=== PATIENT | female | born 1995 | race American Indian/Alaskan Native ===

== ENCOUNTER 2017-06-07 14:52 | Emergency (ER) | payer BC ==
[2017-06-07] MEDS ORDERED: MOTRIN PO ONE (20:30)
[2017-06-07] MEDS ORDERED: XYLOCAINE TOPICAL 5% TP ONE (20:30)
--- NOTE | 2017-06-07 20:30 | Emergency Department Report ---
HPI - General Chief Complaint: Rectal Pain Time Seen by Provider: 06/07/17 19:45 - HPI HPI: Patient report rectal pain and hemorrhoid with swelling. She said this started 2 days ago. She said pain increases with bowel movement but she has normal bowel movement. Denies straining and would have a bowel movement. Denies any rectal bleeding. Denies any abdominal pain denies any urinary burning frequency or urgency. Denies any fever or chills. Pain is 7 out of 10 and burning . Pain is worse with bowel movement. Denies any vaginal bleeding or discharge. Last menstrual period 05/23/2017. Patient reports that she took 2 Tylenol at home but it didn't help her pain. ED Past Medical Hx - Past Medical History Previous Medical History?: No - Surgical History Past Surgical History?: No - Family History Family history: no significant - Social History Smoking Status: Never Smoker Substance Use Type: None - Medications Home Medications: Home Medications Medication Instructions Recorded Confirmed Last Taken Type Hydrocortisone [Anusol-Hc] 30 gm RC TID PRN #1 cream..g. 06/07/17 Unknown Rx Ibuprofen [Motrin] 600 mg PO Q8H PRN #12 tablet 06/07/17 Unknown Rx ED Review of Systems ROS: Stated complaint: RECTAL PAIN Other details as noted in HPI Comment: All other systems reviewed and negative Constitutional: no symptoms reported Respiratory: no symptoms reported Cardiovascular: denies: chest pain, palpitations, dyspnea on exertion, edema, syncope, paroxysmal nocturnal dyspnea Gastrointestinal: denies: abdominal pain, nausea, vomiting, diarrhea, constipation, hematemesis, melena, hematochezia Genitourinary: other (reports). denies: urgency, dysuria, frequency, hematuria , discharge Musculoskeletal: denies: back pain, joint swelling, arthralgia Skin: denies: rash Neurological: denies: headache Physical Exam - Physical Exam Vital Signs: Vital Signs 06/07/17 15:06 Temperature 98.4 F Pulse Rate 82 Respiratory 16 Rate Blood Pressure 121/70 O2 Sat by Pulse 100 Oximetry General: This is a 21-year-old female well-nourished well-developed in no acute distress. Physical Exam: Head: Normocephalic, atraumatic, no abrasion, no bruising and no contusion. Mouth: Mucosa dry, no pharyngeal exudate or erythema. No peritonsillar abscesses. Uvula is midline and oral airways patent. Neck: Supple, No Cervical adenopathy, full range of motion and no C-spine tenderness. Cardiovascular: S1, S2. Regular rate and rhythm. No murmur. Capillary refill is less then 3 seconds. Lungs: Clear to auscultate bilaterally. No rhonchi, wheezes or rales. No chest wall tenderness. No chest contusion. No bruising to chest. Abdomen: Non-tender to palpate in all quadrants, no guarding or rebound tenderness, positive bowel sounds in all quadrants. No CVA tenderness. No hernia, bruit or mass. No rigidity or distention. Extremities: No clubbing, cyanosis or edema. +2 pulses. No neurovascular compromise Skin: Clean, dry and intact. No rash or lesions. Rectal exam: Patient with small external hemorrhoid that is not thrombosed. No bleeding noted. No rash or lesions noted around anus. Tender to palpate Tendon ED Course Vital Signs 06/07/17 15:06 Temperature 98.4 F Pulse Rate 82 Respiratory 16 Rate Blood Pressure 121/70 O2 Sat by Pulse 100 Oximetry - Reevaluation(s) Reevaluation #1: 06/07/17 20:46 Patient given Motrin 800 mg by mouth in emergency room for rectal pain. Physical slow given topical lidocaine 5% to apply to side. 06/07/17 20:49 ED Medical Decision Making - Medical Decision Making ED course: Here complaining of hemorrhoid and rectal pain. Physical findings were small hemorrhoid externally rectal area, tenderness to palpate. No bleeding from rectal area. Hemorrhoid is not thrombosed. Patient given Motrin 800 mg by mouth for rectal pain and lidocaine 5% topically applied to site. Patient discharged home with prescription for Anusol cream and Motrin and to follow-up with [facility] in 2-3 days. Critical care attestation.: If time is entered above; I have spent that time in minutes in the direct care of this critically ill patient, excluding procedure time. ED Disposition Clinical Impression: External hemorrhoid, Rectal pain Disposition: TO HOME OR SELFCARE Is pt being admited?: No Does the pt Need Aspirin: No Condition: Stable Instructions: Hemorrhoids (ED), Hydrocortisone (Rectal), High Fiber Diet (ED) Additional Instructions: Please follow up with [facility] in 2-3 days If hemorrhoid becomes enlarged and engorged and increasing rectal pain with bleeding, please return to the emergency room AYESHA. Apply topical medication as instructed Increase fiber in diet. Prescriptions: Hydrocortisone [Anusol-Hc] 30 gm RC TID PRN #1 cream..g. PRN Reason: Hemorrhoids Ibuprofen [Motrin] 600 mg PO Q8H PRN #12 tablet PRN Reason: Pain Referrals: [facility] [Outside] - 2-3 Days Forms: Work/School Release Form(ED)
[2017-06-07 20:56] VITALS: BP 104/70
[2017-06-07] MEDS ORDERED: NACL 0.9% INFILTRATI ONE (21:00)
[2017-06-07] MEDS ORDERED: XYLOCAINE 1% INFILTRATI ONE (21:00)
== END 2017-06-07 20:59 | disposition home or self-care (01) ==
LOC: ED 14:52
DX: K64.4 Residual hemorrhoidal skin tags (principal); R10.2 Pelvic and perineal pain
CPT/HCPCS: 99283

== ENCOUNTER 2019-07-12 20:22 | Emergency (ER) | payer BC ==
[2019-07-12 21:21] LABS: Bacteria,Urine 1+ /HPF (Negative); Bilirubin,Urine NEG (Negative); Blood,Urine NEG (Negative); Color,Urine Straw (Yellow); Protein,Urine <15 mg/dL mg/dL (Negative); Urobilinogen,Urine < 2.0 mg/dL (<2.0)
[2019-07-12 21:59] LABS: Basophils % (Auto) 0.5 % (0.0-1.8); Eosinophils # (Auto) 0.1 K/mm3 (0.0-0.4); Eosinophils % (Auto) 0.7 % (0.0-4.3); Hematocrit 35.8 % (30.3-42.9); Hemoglobin 11.9 gm/dl (10.1-14.3); Lymphocytes # (Auto) 1.5 K/mm3 (1.2-5.4); Lymphocytes % (Auto) 15.9 % (13.4-35.0); Mean Corpuscular HGB Conc 33 % (30-34); Mean Corpuscular Volume 81 fl (79-97); Monocytes # (Auto) 0.5 K/mm3 (0.0-0.8); Monocytes % (Auto) 5.7 % (0.0-7.3); Platelet Count 272 K/mm3 (140-440); Red Blood Count 4.45 M/mm3 (3.65-5.03); Red Cell Distribution Width 13.4 % (13.2-15.2)
[2019-07-12 22:05] LABS: Alanine Aminotransferase 8 units/L (7-56); Albumin 3.9 g/dL (3.9-5); BUN/Creatinine Ratio 13; Blood Urea Nitrogen 9 mg/dL (7-17); Calcium 8.9 mg/dL (8.4-10.2); Hemolysis Index 2
--- NOTE | 2019-07-12 23:21 | Emergency Department Report ---
ED Abdominal Pain HPI - General Chief Complaint: Abdominal Pain Stated Complaint: ABD PAIN Time Seen by Provider: 07/12/19 23:16 Source: patient Mode of arrival: Ambulatory Limitations: No Limitations - History of Present Illness Initial Comments: Ms. Ovalles is a 23-year-old -[place] female who presents for right flank radiating suprapubic 04/03 x3 days. She denies nausea or vomiting, no fevers or chills, she denies vaginal discharge or bleeding. She denies urinary urgency or hematuria. Pain is relieved by nothing tried. Pain is exacerbated by nothing. MD Complaint: flank pain Onset/Timin -: days(s) Location: R flank Radiation: suprapubic Migration to: no migration Severity: moderate Severity scale (0 -10): 3 Quality: aching Consistency: intermittent Improves With: nothing Worsens With: nothing Associated Symptoms: denies: nausea, vomiting, fever, chills, dysuria, hematuria - Related Data LMP (females 10-50): 3 weeks Previous Rx's Medication Instructions Recorded Last Taken Type Hydrocortisone [Anusol-Hc 2.5% TOP 30 gm RC TID PRN #1 cream..g. 06/07/17 Unknown Rx CREAM] Ibuprofen [Motrin] 600 mg PO Q8H PRN #12 tablet 06/07/17 Unknown Rx Ibuprofen [Motrin 800 MG tab] 800 mg PO Q8HR PRN #30 tablet 07/12/19 Unknown Rx Nitrofurantoin Aurora/M-Cryst 100 mg PO BID 7 Days #14 capsule 07/12/19 Unknown Rx [Macrobid CAP] Allergies Allergy/AdvReac Type Severity Reaction Status Date / Time No Known Allergies Allergy Unverified 07/12/19 20:37 ED Review of Systems ROS: Stated complaint: ABD PAIN Other details as noted in HPI Constitutional: denies: chills, fever Eyes: denies: eye pain, eye discharge, vision change ENT: denies: ear pain, throat pain Respiratory: denies: cough, shortness of breath, wheezing Cardiovascular: denies: chest pain, palpitations Endocrine: no symptoms reported Gastrointestinal: abdominal pain (right flank ). denies: nausea, vomiting, diarrhea, constipation, hematemesis, melena Genitourinary: denies: urgency, dysuria, frequency, hematuria, discharge, abnormal menses, dyspareunia Musculoskeletal: back pain (right flank). denies: joint swelling, arthralgia Skin: denies: rash, lesions Neurological: denies: headache, weakness, paresthesias Psychiatric: denies: anxiety, depression Hematological/Lymphatic: as per HPI ED Past Medical Hx - Past Medical History Previous Medical History?: No - Surgical History Past Surgical History?: No - Social History Smoking Status: Never Smoker Substance Use Type: None - Medications Home Medications: Home Medications Medication Instructions Recorded Confirmed Last Taken Type Hydrocortisone [Anusol-Hc 2.5% TOP 30 gm RC TID PRN #1 cream..g. 06/07/17 Unknown Rx CREAM] Ibuprofen [Motrin] 600 mg PO Q8H PRN #12 tablet 06/07/17 Unknown Rx Ibuprofen [Motrin 800 MG tab] 800 mg PO Q8HR PRN #30 tablet 07/12/19 Unknown Rx Nitrofurantoin [place]/M-Cryst 100 mg PO BID 7 Days #14 capsule 07/12/19 Unknown Rx [Macrobid CAP] ED Physical Exam - General Limitations: No Limitations General appearance: alert, in no apparent distress - Head Head exam: Present: atraumatic, normocephalic - Eye Eye exam: Present: normal appearance, PERRL, EOMI Pupils: Present: normal accommodation - ENT ENT exam: Present: mucous membranes moist - Neck Neck exam: Present: normal inspection, full ROM. Absent: tenderness, lymphadenopathy - Respiratory Respiratory exam: Present: normal lung sounds bilaterally. Absent: respiratory distress, wheezes, stridor, chest wall tenderness - Cardiovascular Cardiovascular Exam: Present: regular rate, normal rhythm, normal heart sounds. Absent: systolic murmur, diastolic murmur, rubs, gallop - GI/Abdominal GI/Abdominal exam: Present: soft, normal bowel sounds. Absent: distended, tenderness, guarding, rebound, rigid, bruit, hernia - Rectal Rectal exam: Present: deferred - Extremities Exam Extremities exam: Present: normal inspection - Back Exam Back exam: Present: normal inspection, full ROM. Absent: tenderness, CVA tenderness (R), CVA tenderness (L), rash noted - Neurological Exam Neurological exam: Present: alert, oriented X3, CN II-XII intact, normal gait - Psychiatric Psychiatric exam: Present: normal affect, normal mood - Skin Skin exam: Present: warm, dry, intact, normal color. Absent: rash ED Medical Decision Making - Lab Data Result diagrams: 07/12/19 21:30 07/12/19 21:30 Labs 07/12/19 07/12/19 07/12/19 21:30 21:30 Unknown WBC 9.4 RBC 4.45 Hgb 11.9 Hct 35.8 MCV 81 MCH 27 L MCHC 33 RDW 13.4 Plt Count 272 Lymph % (Auto) 15.9 [place] % (Auto) 5.7 Eos % (Auto) 0.7 Baso % (Auto) 0.5 Lymph # 1.5 Aurora # 0.5 Eos # 0.1 Baso # 0.0 Seg Neutrophils % 77.2 H Seg Neutrophils # 7.2 Sodium 139 Potassium 4.0 Chloride 100.9 Carbon Dioxide 25 Anion Gap 17 BUN 9 Creatinine 0.7 Estimated GFR > 60 BUN/Creatinine Ratio 13 Glucose 100 Calcium 8.9 Total Bilirubin 0.20 AST 12 ALT 8 Alkaline Phosphatase 64 Total Protein 7.6 Albumin 3.9 Albumin/Globulin Ratio 1.1 Urine Color Straw Urine Turbidity Hazy Urine pH 6.0 Ur Specific [place] 1.006 Urine Protein <15 mg/dl Urine Glucose (UA) Neg Urine Ketones Neg Urine Blood Neg Urine Nitrite Neg Urine Bilirubin Neg Urine Urobilinogen < 2.0 Ur Leukocyte Esterase Sm Urine WBC (Auto) 7.0 H Urine RBC (Auto) 1.0 U Epithel Cells (Auto) 7.0 Urine Bacteria (Auto) 1+ - Medical Decision Making UA positive for leukocytes WBCs RBCs. Patient denies dysuria frequency urgency or hematuria. All the labs are normal. There is no fever chills nausea vomiting or abdominal tenderness. No history of renal stones. No concern for STD or . Critical care attestation.: If time is entered above; I have spent that time in minutes in the direct care of this critically ill patient, excluding procedure time. ED Disposition Clinical Impression: UTI (urinary tract infection) Qualifiers: Urinary tract infection type: acute cystitis Hematuria presence: without hematuria Qualified Code(s): N30.00 - Acute cystitis without hematuria Disposition: TO HOME OR SELFCARE Is pt being admited?: No Does the pt Need Aspirin: No Condition: Stable Instructions: Flank Pain (ED) Prescriptions: Nitrofurantoin Aurora/M-Cryst [Macrobid CAP] 100 mg PO BID 7 Days #14 capsule Ibuprofen [Motrin 800 MG tab] 800 mg PO Q8HR PRN #30 tablet PRN Reason: pain Referrals: LANCE LAST MD [Staff Physician] - 3-5 Days Forms: Work/School Release Form(ED) Time of Disposition: 23:26
[2019-07-12 23:38] VITALS: BP 112/82
== END 2019-07-12 23:41 | disposition home or self-care (01) ==
LOC: ED 20:22
DX: N39.0 Urinary tract infection, site not specified (principal); Z79.1 Long term (current) use of non-steroidal anti-inflammatories (NSAID); Z79.899 Other long term (current) drug therapy
CPT/HCPCS: 36415; 80053; 81001; 85025